=== PATIENT | male | born 1980 | race Caucasian/White ===

== ENCOUNTER 2017-05-01 22:02 | Emergency (ER) | payer MEDICAID ==
[~2017-05-01] VITALS: Ht 188 cm; Wt 83.9 kg
[2017-05-01 22:17] VITALS: BP_SYST 128
== END 2017-05-02 00:30 | disposition left against medical advice (07) ==
LOC: SED 22:02
DX: M79.601 Pain in right arm (principal); Z53.21 Procedure and treatment not carried out due to patient leaving prior to being seen by health care provider